=== PATIENT | female | born 1950 | race Caucasian/White ===

== ENCOUNTER 2017-05-09 11:08 | Day surgery (SDC) | payer OTHER ==
[~2017-05-09] VITALS: Ht 167.6 cm; Wt 125.1 kg
[~2017-05-09 11:08] MED LIST: ADVAIR HFA120 INHAL1 IH; ASCORBIC ACID500 M3 PO; Astelin, Astepro 0.1 BOTH NARES; BENZONATATE200 MG PO; CELEBREX200 MG PO; CLINORIL150 MG PO; CRESTOR20 MG PO; CYCLOBENZAPRINE PO; Coumadin,Jantoven PO; DUONEB 2.5-0.5 M3 ML AEROSOL; Dulcolax PO; FLEXERIL PO; FLEXERIL10 MG PO; FLONASE ALLERG9.9 ML BOTH NARES; FLOVENT 22120 INHALA IH; FUROSEMIDE20 MG PO; Feosol PO; Flovent 220 mcg IH; Glucophage PO; HYDROCODON-ACE1 EAC7 PO; L THYROXINE PO; LEVAQUIN500 MG PO; LEVOTHYROXINE88 MCG PO; LO-DOSE ASPIRIN81 M1 PO; Lasix PO; Levothroid,Synthroid PO; Lidoderm 5% Patch TD; METFORMIN HCL500 MG PO; METOPROLOL SUCC25 MG PO; MIRALAX17 GM PO; MONTELUKAST SOD10 MG PO; Miralax, Glycolax PO; NASONEX17 GM NS; ORACEA40 MG PO; Oracea PO; PREDNISONE20 MG PO; STOOL SOFTENER100 MG PO; Senokot S,Pericolace PO; TRULICITY0.75 MG/0. SC; Tylenol Regular Stre PO; VITAMIN D31000 UNI2 PO; oxyCODONE PO
[2017-05-09] MEDS ORDERED: DULERA 100 MCG/13 GM IH (11:32)
[2017-05-09 11:42] VITALS: BP 117/62
[2017-05-09 18:15] VITALS: BP 135/60
[2017-05-09 19:16] VITALS: BP 136/63
== END 2017-05-09 19:30 | disposition home or self-care (01) ==
LOC: SDC 11:08
PROVIDERS: Orthopaedic Surgery
PROC: 0PSC04Z Reposition Right Humeral Head with Internal Fixation Device, Open Approach (ICD-10-PCS; principal; 2017-05-09)
DX: S42.251A Displaced fracture of greater tuberosity of right humerus, initial encounter for closed fracture (principal); E11.9 Type 2 diabetes mellitus without complications; J44.9 Chronic obstructive pulmonary disease, unspecified; G47.30 Sleep apnea, unspecified; M19.90 Unspecified osteoarthritis, unspecified site; Z85.828 Personal history of other malignant neoplasm of skin; Z98.84 Bariatric surgery status; Z79.82 Long term (current) use of aspirin; Z79.84 Long term (current) use of oral hypoglycemic drugs; F17.200 Nicotine dependence, unspecified, uncomplicated; Z96.653 Presence of artificial knee joint, bilateral; Z84.1 Family history of disorders of kidney and ureter; Z82.49 Family history of ischemic heart disease and other diseases of the circulatory system; Z82.61 Family history of arthritis; Z83.3 Family history of diabetes mellitus; Z83.49 Family history of other endocrine, nutritional and metabolic diseases; W19.XXXA Unspecified fall, initial encounter
CPT/HCPCS: 73030; 76000; 82948; C1713; J0131; J0690; J1100; J1170; J2250; J2795; S0020